=== PATIENT | male | born 1960 | race Caucasian/White ===

== ENCOUNTER 2018-02-25 21:29 | Inpatient (IN) ==
[2018-02-25] MEDS ORDERED: ONDANSETRON 4 MG/2 ML VIAL IV STA (22:23)
[2018-02-25] MEDS ORDERED: SODIUM CHLORIDE 0.9% 1,000 ML IV STA (22:23)
[2018-02-25] MEDS ORDERED: MORPHINE 4 MG/1 ML VIAL IV STA ×3 (22:23→23:55)
[2018-02-25 23:06] LABS: Apearance,Urine CLEAR (Clear); Bilirubin,Urine Negative (Negative); Blood, Urine Negative (Negative); Glucose,Urine (UA) 50 mg/dL (Negative); Ketones,Urine Negative (Negative); Mucus,Urine Occasional /LPF (Occasional); Nitrite,Urine Negative (Negative); Protein,Urine Negative; RBC,Urine 1 /HPF (0-4); Urine Color Yellow (Yellow); Urine Specific Gravity 1.025 (1.001-1.035); Urine Urobilinogen < 2.0 EU/DL (0.2-1.0); WBC,Urine 1 /HPF (0-6)
[2018-02-25 23:07] LABS: Basophils % 0.2 % (0.0-0.8); Eosinophils % 0.1 % (0.00-10.9); Hematocrit 46.9 VOL% (42.0-52.0); Immature Granulocytes % 0.5 %; Immature Granulocytes Absolute 0.07 #; Lymphocytes # 0.8 10*3/uL (1.4-4.0); Lymphocytes % 5.8 % (21.2-54.2); Mean Corpuscular Hemoglobin 29 PG (27-34); Mean Corpuscular Volume 89.3 FL (87-102); Mean Platelet Volume 10.9 FL (9.6-12.0); Monocytes # 0.7 10*3/uL (0.11-0.8); Monocytes % 5.7 % (1.7-12.7); Neutrophils # 11.5 10*3/uL (1.4-7.4); Neutrophils % 87.7 % (38.7-73.9); Platelet Count 336 T/CUMM (130-400); Red Blood Count 5.25 MC/CUMM (3.8-5.5); White Blood Count 13.1 T/CUMM (4-12)
[2018-02-25 23:56] LABS: Alanine Aminotransferase 45 U/L (16-61); Albumin 3.5 G/DL (3.4-5.0); Alkaline Phosphatase 89 U/L (45-117); Aspartate Amino Transferase 31 U/L (0-37); Blood Urea Nitrogen 17 MG/DL (7-18); Glucose 206 MG/DL (74-106); Osmolality,Calculated 284.5 MOS/KG (273-304); Sodium 139 MMOL/L (136-145); Total Protein 8.1 G/DL (6.4-8.3)
[2018-02-25 23:57] LABS: Lactic Acid 3.3 MMOL/L (0.4-2.0)
[2018-02-26] MEDS ORDERED: ONDANSETRON 4 MG/2 ML VIAL IV PRN (00:34)
[2018-02-26] MEDS: DEXTROSE 5% LACTATED RINGERS 1,000 ML IV SCH ×4 (01:43→18:13)
[2018-02-26] MEDS: SIMETHICONE CHEW 80 MG TABLET PO PRN ×2 (02:37→21:13)
[2018-02-26] MEDS: MORPHINE 10 MG/1 ML VIAL IV SCH ×6 (02:37→21:13)
[2018-02-26 04:35] LABS: Basophils % 0.3 % (0.0-0.8); Hematocrit 42.6 VOL% (42.0-52.0); Hemoglobin 13.7 GM/DL (14.0-18.0); Immature Granulocytes % 0.4 %; Immature Granulocytes Absolute 0.05 #; Lymphocytes % 8.1 % (21.2-54.2); Mean Corpuscular HGB Conc 32.2 GM/DL (32-36); Mean Corpuscular Hemoglobin 28 PG (27-34); Mean Corpuscular Volume 88.4 FL (87-102); Mean Platelet Volume 11.2 FL (9.6-12.0); Monocytes # 0.9 10*3/uL (0.11-0.8); Monocytes % 7.5 % (1.7-12.7); Neutrophils % 83.7 % (38.7-73.9); Platelet Count 300 T/CUMM (130-400); Red Blood Count 4.82 MC/CUMM (3.8-5.5); White Blood Count 11.9 T/CUMM (4-12)
[2018-02-26 05:05] LABS: Albumin 2.8 G/DL (3.4-5.0); Bilirubin,Total 1.1 MG/DL (0.2-1.0); Calcium 8.3 MG/DL (8.5-10.1); Osmolality,Calculated 285.3 MOS/KG (273-304); Potassium 4.2 MMOL/L (3.5-5.1); Total Protein 6.8 G/DL (6.4-8.3)
[2018-02-26] MEDS: PANTOPRAZOLE 40 MG TABLET PO SCH (09:21)
[2018-02-26] MEDS ORDERED: DOCUSATE SODIUM 100 MG CAPSULE PO PRN (11:06)
[2018-02-26] MEDS: BISACODYL 5 MG TABLET PO SCH ×3 (12:24→23:03)
[2018-02-27] MEDS: DEXTROSE 5% LACTATED RINGERS 1,000 ML IV SCH ×2 (02:14→10:23)
[2018-02-27] MEDS: MORPHINE 10 MG/1 ML VIAL IV SCH ×5 (02:15→19:49)
[2018-02-27] MEDS: BISACODYL 5 MG TABLET PO SCH ×4 (05:55→17:21)
[2018-02-27] MEDS: PANTOPRAZOLE 40 MG TABLET PO SCH (09:18)
[2018-02-28] MEDS: MORPHINE 10 MG/1 ML VIAL IV SCH ×5 (00:56→13:00)
[2018-02-28] MEDS: BISACODYL 5 MG TABLET PO SCH ×5 (00:58→22:56)
[2018-02-28] MEDS: DEXTROSE 5% LACTATED RINGERS 1,000 ML IV SCH ×3 (03:28→11:30)
[2018-02-28] MEDS ORDERED: DEXTROSE 50% 25 GM/50 ML VIAL IV PRN (07:30)
[2018-02-28] MEDS ORDERED: GLUCAGON 1 MG VIAL IM PRN (07:30)
[2018-02-28] MEDS: NAPROXEN 250 MG TABLET PO PRN (10:25)
[2018-02-28] MEDS ORDERED: MORPHINE 10 MG/1 ML VIAL IV PRN (13:13)
[2018-02-28] MEDS ORDERED: METHYLPHENIDATE HCL 20 MG PO SCH (13:15)
[2018-02-28] MEDS: LACTATED RINGERS 1,000 ML IV SCH (14:30)
[2018-02-28] MEDS: INSULIN LISPRO 100 UNIT/ML SUBCUT SCH ×2 (16:30→21:06)
[2018-02-28] MEDS: buPROPion SR 100 MG TABLET PO SCH (21:05)
[2018-02-28] MEDS: CARBIDOPA/LEVODOPA 25-100 MG TABLET PO PRN (21:05)
[2018-02-28] MEDS: ATENOLOL 50 MG TABLET PO SCH (21:05)
[2018-02-28] MEDS: ALLOPURINOL 300 MG TABLET PO SCH (21:05)
[2018-03-01] MEDS: LACTATED RINGERS 1,000 ML IV SCH ×2 (02:10→11:45)
[2018-03-01] MEDS: SODIUM CHLORIDE 0.9% 1,000 ML IV SCH ×2 (02:10→13:19)
[2018-03-01 05:16] LABS: Basophils % 0.5 % (0.0-0.8); Eosinophils # 0.3 10*3/uL (0.0-0.87); Eosinophils % 4.1 % (0.00-10.9); Hematocrit 36.7 VOL% (42.0-52.0); Hemoglobin 12.4 GM/DL (14.0-18.0); Immature Granulocytes % 0.5 %; Immature Granulocytes Absolute 0.04 #; Lymphocytes # 2.2 10*3/uL (1.4-4.0); Lymphocytes % 26.1 % (21.2-54.2); Mean Corpuscular HGB Conc 33.8 GM/DL (32-36); Mean Corpuscular Hemoglobin 29 PG (27-34); Mean Platelet Volume 10.9 FL (9.6-12.0); Monocytes # 0.8 10*3/uL (0.11-0.8); Monocytes % 9.5 % (1.7-12.7); Neutrophils % 59.3 % (38.7-73.9); Platelet Count 300 T/CUMM (130-400); Red Blood Count 4.32 MC/CUMM (3.8-5.5); Red Cell Distribution Width 13.8 % (9.3-17.3); White Blood Count 8.4 T/CUMM (4-12)
[2018-03-01 05:28] LABS: INR 1.1; PT Patient Result 11.3 SECS
[2018-03-01] MEDS: BISACODYL 5 MG TABLET PO SCH ×4 (06:25→22:49)
[2018-03-01] MEDS: INSULIN LISPRO 100 UNIT/ML SUBCUT SCH ×4 (07:55→21:36)
[2018-03-01] MEDS: PANTOPRAZOLE 40 MG TABLET PO SCH (07:57)
[2018-03-01] MEDS: buPROPion SR 100 MG TABLET PO SCH ×2 (08:05→21:37)
[2018-03-01] MEDS ORDERED: INDOMETHACIN SUPP 50 MG SUPP RECTAL ONE (12:00)
[2018-03-01] MEDS ORDERED: MIDAZOLAM 2 MG/2 ML VIAL ONE (12:42)
[2018-03-01] MEDS ORDERED: fentaNYL 100 MCG/2 ML VIAL ONE ×2 (12:42→13:37)
[2018-03-01] MEDS ORDERED: PROPOFOL 200 MG/20 ML VIAL IV ONE (13:10)
[2018-03-01] MEDS ORDERED: ROCURONIUM 100 MG/10 ML VIAL IV ONE (13:10)
[2018-03-01] MEDS ORDERED: ONDANSETRON 4 MG/2 ML VIAL ONE (13:10)
[2018-03-01] MEDS ORDERED: SUCCINYLCHOLINE 200 MG/10 ML VIAL ONE (13:10)
[2018-03-01] MEDS ORDERED: LIDOCAINE 2% 5 ML VIAL ONE (13:10)
[2018-03-01] MEDS ORDERED: SEVOFLURANE 1 UNIT/15 MINUTE INH ONE (14:01)
[2018-03-01] MEDS: ALLOPURINOL 300 MG TABLET PO SCH (21:37)
[2018-03-01] MEDS: CARBIDOPA/LEVODOPA 25-100 MG TABLET PO PRN (21:37)
[2018-03-01] MEDS: ATENOLOL 50 MG TABLET PO SCH (21:37)
[2018-03-02] MEDS: LACTATED RINGERS 1,000 ML IV SCH (06:07)
[2018-03-02] MEDS: SODIUM CHLORIDE 0.9% 1,000 ML IV SCH (06:08)
[2018-03-02] MEDS: BISACODYL 5 MG TABLET PO SCH ×2 (06:08→12:20)
[2018-03-02 06:43] VITALS: BP 96/66
[2018-03-02] MEDS: PANTOPRAZOLE 40 MG TABLET PO SCH (08:23)
[2018-03-02] MEDS: NAPROXEN 250 MG TABLET PO PRN (08:23)
[2018-03-02] MEDS: buPROPion SR 100 MG TABLET PO SCH (08:23)
[2018-03-02] MEDS: INSULIN LISPRO 100 UNIT/ML SUBCUT SCH ×2 (08:24→12:21)
== END 2018-03-02 11:45 | disposition home or self-care (01) | DRG 921 ==
LOC: N.ED 21:29 → N.EDINP 02-26 00:34 → N.3E 02-26 01:12
PROVIDERS: ADMIT Surgery; ATTEND Surgery